=== PATIENT | female | born 1945 | race Asian ===

== ENCOUNTER 2018-07-28 13:11 | Emergency (ER) | payer BC, OTHER ==
[~2018-07-28] VITALS: Ht 157.5 cm; Wt 72.6 kg
[~2018-07-28 13:11] MED LIST: AMLO5TAB4 PO; ASPI-1155; CLOP75TA2; INSU100V; INSU100V11 SUBCUT; LEVO100T; METF1000 PO; ROSU5TAB; TRILIPIX; VALS160T2 PO
[2018-07-28 13:14] VITALS: BP_SYST 174
--- NOTE | 2018-07-28 13:14 | NUR ---
Placed in room 04 . Placed on talent sourcing specialist, blood pressure machine and pulse oximeter. Side rails up.
--- NOTE | 2018-07-28 13:15 | NUR ---
ER Dr. Breaux at bedside examining patient.
--- NOTE | 2018-07-28 13:16 | NUR ---
Pt AAOx4 BIB ACLS c/o SOB x 2 days. Pt states the symptoms feel the similar to when she was diagnosed with pneumonia in the past. Was given breathing tx en route with relief. No other injuries/complaints per pt/noted. Will continue to monitor.
[2018-07-28] MEDS ORDERED: NACL 0.9% 1,000 ML IV ONE (13:46)
[2018-07-28] MEDS ORDERED: NOR10 PO (13:56)
[2018-07-28] MEDS ORDERED: ENAL5TAB77 PO (13:56)
[2018-07-28] MEDS ORDERED: CHOL20004 PO (13:56)
[2018-07-28] MEDS ORDERED: ALPR0.5T8 PO (13:56)
[2018-07-28] MEDS ORDERED: LEVO112T5 PO (13:56)
[2018-07-28] MEDS ORDERED: METO50TA7 PO (13:56)
[2018-07-28] MEDS ORDERED: LIP10 PO (13:56)
--- NOTE | 2018-07-28 13:56 | NUR ---
Medication reconciliation completed with information provided by pt. Any prior medication reconciliation on file was reviewed and corrected.
[2018-07-28] MEDS ORDERED: ONDANSETRON HCL 4 MG/2 ML VIAL IVP ONE (14:00)
--- NOTE | 2018-07-28 14:00 | NUR ---
ER Dr. Breaux at bedside examining patient.
--- NOTE | 2018-07-28 14:02 | NUR ---
Pt assisted to bedside commode to provide urine sample. Pt tolerated well.
[2018-07-28 14:51] LABS: BILIRUBIN,URINE NEGATIVE (NEGATIVE); BLOOD, URINE NEGATIVE (NEGATIVE); CLARITY/URINE CLEAR (CLEAR); COLOR,URINE YELLOW (YELLOW); GLUCOSE,URINE 3+ (NEGATIVE); KETONES,URINE NEGATIVE (NEGATIVE); LEUKOCYTE ESTERASE ,URINE NEGATIVE (NEGATIVE); NITRITE, URINE NEGATIVE (NEGATIVE); PH,URINE 5.5 (5.0-8.0); PROTEIN URINE 3+ (NEGATIVE); UROBILINOGEN,URINE 0.2 (0.2-1.0)
[2018-07-28 14:54] LABS: BASOPHILS % (AUTO) 0.4 % (0.0-2.0); EOSINOPHILS # (AUTO) 0.3 K/uL (0.0-0.4); EOSINOPHILS % (AUTO) 2.3 % (0.0-4.0); HEMATOCRIT 43.9 % (36-48); HEMOGLOBIN 14.4 g/dL (12.0-16.0); LYMPHOCYTES # (AUTO) 2.7 K/uL (1.0-5.5); LYMPHOCYTES % (AUTO) 22.9 % (20.5-51.5); MEAN CORPUSCULAR HEMOGLOBIN 29 pg (27-31); MEAN CORPUSCULAR HGB CONC 33 % (32-36); MEAN CORPUSCULAR VOLUME 89 fL (79.0-98.0); MONOCYTES # (AUTO) 0.5 K/uL (0.0-1.0); MONOCYTES % (AUTO) 4.7 % (1.7-9.3); NEUTROPHILS # (AUTO) 8.2 K/uL (1.8-7.7); NEUTROPHILS % (AUTO) 69.7 % (40.0-70.0); PLATELET COUNT (AUTO) 363 K/uL (130-430); RED BLOOD CELL COUNT(AUTO) 4.91 MIL/uL (4.2-6.2); RED CELL DISTRIBUTION WIDTH 12.4 % (9.0-15.0); WHITE BLOOD COUNT (AUTO) 11.7 K/uL (4.8-10.8)
[2018-07-28 14:58] LABS: BACTERIA,URINE RARE /HPF (None Seen); MUCUS,URINE 1+ /LPF (None Seen); RBC,URINE 0-3 /HPF (0-3); WBC,URINE 0-3 /HPF (0-3)
[2018-07-28 15:16] LABS: ALANINE AMINOTRANSFERASE 36 U/L (12-78); AMYLASE 81 U/L (0-100); ANION GAP 10 (5-15); ASPARTATE AMINOTRANSFERASE 26 U/L (10-37); CALCIUM 9.3 mg/dL (8.4-11.0); CHLORIDE 98 mmol/L (98-107); CREATININE 1.08 mg/dL (0.55-1.30); GLUCOSE 289 mg/dL (70-99); LIPASE 192 U/L (73-393); POTASSIUM 4.3 mmol/L (3.5-5.1); SODIUM SERUM 133 mmol/L (136-145); TOTAL BILIRUBIN 0.3 mg/dL (0.0-1.0); UREA NITROGEN, BLOOD 23 mg/dL (8-21)
--- NOTE | 2018-07-28 16:15 | NUR ---
Respiratory at bedside for breathing tx and blood gas
[2018-07-28] MEDS ORDERED: ALBUTEROL SULFATE 0.083% 2.5 MG/3 ML VIAL.NEB IH ONE (16:30)
[2018-07-28] MEDS ORDERED: methylPREDNISolone SOD SUCC/PF 62.5 MG/ML VIAL IVP ONE (16:30)
[2018-07-28] MEDS ORDERED: IPRATROPIUM BROM 0.5 MG/2.5 ML VIAL.NEB (ATROVENT) IH ONE (16:30)
--- NOTE | 2018-07-28 16:44 | NUR ---
Solumedrol 125mg IVP administered. Pt tolerated well. No adverse reactions noted.
--- NOTE | 2018-07-28 16:59 | NUR ---
Pt states she is full code
--- NOTE | 2018-07-28 17:26 | NUR ---
Message left for Dietary. Diabetic tray ordered.
--- NOTE | 2018-07-28 17:58 | NUR ---
Pt requests antibiotics. MD Breaux at bedside for evaluation. Orders to be received.
--- NOTE | 2018-07-28 18:00 | NUR ---
Diabetic tray delivered to pt. Pt requests not to be admitted into the hospital. MD Breaux to bedside to discuss risks and benefits.
--- NOTE | 2018-07-28 19:27 | NUR ---
Care endorsed to Wes TUCKER
[2018-07-28 19:30] VITALS: BP_SYST 158
--- NOTE | 2018-07-28 19:30 | NUR ---
Patient given written and verbal discharge instructions and verbalizes understanding. ER MD discussed with patient the results and treatment provided. Patient in stable condition. ID arm band removed. IV catheter removed intact and dressing applied, no active bleeding. Rx of proventil, Zithromax, Robitussin syrup and lasix 40 mg tab given. Patient educated on pain management and to follow up with PMD. Pain Scale 0/10 ps. Opportunity for questions provided and answered. Medication side effect fact sheet provided.
[2018-07-28 19:44] LABS: INR 0.8 (0.8-1.2)
== END 2018-07-28 19:30 | disposition home or self-care (01) ==
LOC: SED 13:11
DX: J20.9 Acute bronchitis, unspecified (principal); R60.0 Localized edema; K21.9 Gastro-esophageal reflux disease without esophagitis; E11.9 Type 2 diabetes mellitus without complications; I10 Essential (primary) hypertension; Z86.79 Personal history of other diseases of the circulatory system; Z90.710 Acquired absence of both cervix and uterus; Z88.0 Allergy status to penicillin; Z79.82 Long term (current) use of aspirin; Z79.899 Other long term (current) drug therapy
CPT/HCPCS: 36415; 36600; 71045; 80053; 81000; 82150; 82550; 82803; 83605; 83690; 83880; 84484; 85025; 85379; 85610; 85730; 87040; 93005; 94640; 96365; 96375; 99284; J1956; J2405; J2930; J7030; J7613